=== PATIENT | male | born 1935 | race Two or more races ===

== ENCOUNTER 2024-05-04 16:16 | Emergency (ER) | payer OTHER ==
[~2024-05-04] VITALS: Ht 182.9 cm; Wt 95.4 kg
--- NOTE | 2024-05-04 16:31 | ECG ---
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
--- NOTE | 2024-05-04 17:12 | DVH ---
CHEST RADIOGRAPH Indication:aloc Technique: Single frontal view of the chest was obtained Comparison: None FINDINGS: Lines and Tubes: None Lungs: No focal consolidation. Left basilar linear densities. Surgical clips are noted over the lower neck region. Mild elevation of the right hemidiaphragm. Pleura: No effusion. No pneumothorax. Cardiomediastinal contours: Unremarkable Bones: No acute osseous abnormality. IMPRESSION: Left basilar atelectasis. Otherwise, no evidence of acute cardiopulmonary disease.
--- NOTE | 2024-05-04 17:22 | DVH ---
Procedure: CT HEAD WITHOUT CONTRAST Study Date and Requested Time: 05/04/2024 04:46 PM History: aloc Comparison: None Dose: CTDI: 63.38 mGy DLP: 1248.63 mGycm Technique: Multiplanar images obtained through the brain without intravenous contrast. Findings: There is mild to moderate diffuse brain atrophy. There is mild chronic small-vessel ischemic changes. Asymmetric left frontal lobe hypodensity with a asymmetric right parietal lobe hypodensity which may represent areas of infarct of unknown chronicity. 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 Artifact limits evaluation of the emery punctate hypodensity within the right thalamus. No hemorrhages, masses, mass effect, midline shift, or herniation. No intra-axial or extra-axial flui d collections. No evidence of hydrocephalus. The basal cisterns are patent. The pituitary gland, sella and parasellar regions are unremarkable. The cerebellar tonsils are in nor mal position. Bilateral lens replacement. Otherwise, orbits and globes are unremarkable. Minimal mucoperiosteal th ickening of the ethmoid air cells right sphenoid sinus. Otherwise, the paranasal sinuses and mastoid s are clear. There are no worrisome calvarial lesions. Impression: Areas of asymmetric hypodensity within the left frontal and right parietal lobes which may represent areas of infarct of unknown chronicity. MRI would be helpful for further evaluation. Punctate hypodensity within the right thalamus which represent lacunar infarct of unknown chronicity. 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
[2024-05-04 17:28] LABS: Basophils # (auto) 0 10 ^3/uL (0-0.2); Basophils % (auto) 0.4 % (0.0-2.0); Eosinophils # (auto) 0 10 ^3/uL (0-0.8); Eosinophils % (auto) 0.4 % (0.0-7.0); Hemoglobin 11.3 g/dL (13.5-17.5); Lymphocytes # (auto) 1.2 10 ^3/uL (0.4-5.4); Lymphocytes % (auto) 10.1 % (10.0-50.0); Mean Corpuscular Hemoglobin 31.6 pg (28.0-32.0); Mean Corpuscular Hgb Conc. 33.2 g/dL (32.0-36.0); Mean Corpuscular Volume 95.2 fL (80.0-100.0); Monocytes % (auto) 8.3 % (0.0-12.0); Neutrophils # (auto) 9.5 10 ^3/uL (1.6-8.6); Neutrophils % (auto) 80.8 % (37.0-80.0); Platelet Count (auto) 201 10^3/uL (140-450); Red Blood Cells 3.57 10^6/uL (4.5-5.90); Red Cell Distribution Width 13.9 % (11.8-14.3); White Blood Cell 11.7 10^3/uL (4.4-10.8)
[2024-05-04 17:33] LABS: Urine Bacteria FEW /hpf (None Seen); Urine Blood 2+ /uL (Negative); Urine Clarity Clear (Clear); Urine Color Light-Yellow (Yellow); Urine Protein, UAD 1+ (Negative); Urine Specific Gravity 1.014 (1.001-1.035); Urine Urobilinogen Normal (Negative); Urine WBC 14 /hpf (0 - 3); Urine pH 5.5 (5.0-9.0)
[2024-05-04 17:42] LABS: Alanine Aminotransferase 11 U/L (7-40); Albumin 3.5 g/dL (3.2-4.8); Alkaline Phosphatase 85 U/L (46-116); Anion Gap 8 (5-15); Aspartate Aminotransferase 15 U/L (13-40); BUN/Creatinine Ratio 14.4 (10.0-20.0); Bilirubin, Total 0.3 mg/dL (0.2-1.0); Blood Alcohol < 3.0 mg/dL (<10); Blood Urea Nitrogen 18 mg/dL (9-23); Carbon Dioxide 24 mmol/L (20-31); Chloride 107 mmol/L (98-107); Glucose 105 mg/dL (74-106); Sodium 139 mmol/L (136-145); Total Protein 7.2 g/dL (5.7-8.2)
--- NOTE | 2024-05-04 20:35 | ED.PDOC ---
History of Present Illness HPI Comments 89-year-old male brought in by EMS from home with altered mental status, onset today. Patient himself is currently oriented x1, denies pain, nausea or vomiting, however no additional history is obtainable from the patient. Patient's family later arrived and stated the patient has a history of recent nephrostomy and surgery/biopsy to relieve a bladder outlet obstruction, is currently on antibiotics, and is normally oriented x4. Patient's family states he has been taking [place] for pain, and they are concerned that this medication could be the cause of his change in mental status. Chief Complaint: ALOC Time Seen by MD: 16:35 Primary Care Provider: UNKNOWN Allergies: Coded Allergies: No Known Drug Allergy (Verified Allergy, Unknown, 05/04/24) Mode of Arrival: EMS Past Medical History Past Medical History (Other): Hypertension, bladder outlet obstruction Surgical History (Other): Left nephrostomy, ?Prostate biopsy Unable to Obtain due to: Altered Mental Status (Comprehensive systems review unobtainable due to the patient's altered mental status, but is pertinent for what is stated in the HPI.) Physical Exam General Appearance: No Apparent Distress HEENT: Normal ENT Inspection Neck: Full Range of Motion, Normal Inspection, Supple Respiratory: Lungs Clear, No Accessory Muscle Use, No Respiratory Distress, Normal Breath Sounds Cardiovascular: No Edema, No JVD, Regular Rate/Rhythm Breast Exam: Deferred Gastrointestinal: Non Tender, Soft Genitalia: Other (Left nephrostomy with cloudy urine in collection bag. Nephrostomy site appears clean, dry and intact. Calderon catheter in place with armand blood in the collection bag.) Pelvic: Deferred Rectal: Deferred Extremities: Normal inspection, Normal range of motion, Non-tender, No pedal edema Neurologic: Alert, Other (Moves all extremities, follows commands, sensation grossly intact. Oriented to name only.) Cerebellar Function: NOT DONE Reflexes: NOT DONE Skin: Dry, Normal Color, Warm Lymphatic: NOT DONE Was a procedure done? Was a procedure done?: No EKG EKG : Comments Sinus rhythm, rate 78, normal MA and QRS intervals, QTC prolonged at 5:03 a.m., left axis deviation, occasional PACs, nonspecific T changes Differential Dx Considerations may include: UTI, CVA, TIA, sepsis, pneumonia, electrolyte imbalance, arrhythmia, DC, side effect of medication, alcohol intoxication, drug intoxication, among others X-Ray, Labs, Meds, VS Vital Signs Date Time Temp Pulse Resp B/P (MAP) Pulse Ox O2 Delivery O2 Flow Rate FiO2 05/04/24 22:00 65 23 124/66 (85) 93 05/04/24 21:37 98.7 05/04/24 21:20 98.7 98.7 05/04/24 20:37 101.3 05/04/24 20:30 101.3 101.3 05/04/24 20:00 100.5 79 28 122/77 (92) 93 100.5 05/04/24 20:00 79 05/04/24 19:35 Room Air* 0 21 05/04/24 19:00 74 20 118/71 (87) 95 05/04/24 17:09 75 05/04/24 17:05 Room Air* 0 21 05/04/24 17:05 98.0 74 23 150/72 (98) 94 98.0 05/04/24 16:24 78 05/04/24 16:19 98.4 81 15 150/75 (100) 94 Lab Test 05/04/24 19:54 05/04/24 17:13 05/04/24 17:00 Range/Units Troponin I High Sensitivity 12 10 </=54 ng/L White Blood Count 11.7 H 4.4-10.8 10^3/uL Red Blood Count 3.57 L 4.5-5.90 10^6/uL Hemoglobin 11.3 L 13.5-17.5 g/dL Hematocrit 34.0 L 41.0-53.0 % Mean Corpuscular Volume 95.2 80.0-100.0 fL Mean Corpuscular Hemoglobin 31.6 28.0-32.0 pg Mean Corpuscular Hemoglobin Concent 33.2 32.0-36.0 g/dL Red Cell Distribution Width 13.9 11.8-14.3 % Platelet Count 201 140-450 10^3/uL Mean Platelet Volume 7.9 6.9-10.8 fL Neutrophils (%) (Auto) 80.8 H 37.0-80.0 % Lymphocytes (%) (Auto) 10.1 10.0-50.0 % Monocytes (%) (Auto) 8.3 0.0-12.0 % Eosinophils (%) (Auto) 0.4 0.0-7.0 % Basophils (%) (Auto) 0.4 0.0-2.0 % Neutrophils # (Auto) 9.5 H 1.6-8.6 10 ^3/uL Lymphocytes # (Auto) 1.2 0.4-5.4 10 ^3/uL Monocytes # (Auto) 1.0 0-1.3 10 ^3/uL Eosinophils # (Auto) 0 0-0.8 10 ^3/uL Basophils # (Auto) 0 0-0.2 10 ^3/uL Nucleated Red Blood Cells 0.0 % Sodium Level 139 136-145 mmol/L Potassium Level 4.0 3.5-5.1 mmol/L Chloride Level 107 98-107 mmol/L Carbon Dioxide Level 24 20-31 mmol/L Anion Gap 8 5-15 Blood Urea Nitrogen 18 9-23 mg/dL Creatinine 1.25 0.700-1.30 mg/dL Glomerular Filtration Rate Calc 55 >90 mL/min BUN/Creatinine Ratio 14.4 10.0-20.0 Serum Glucose 105 74-106 mg/dL Lactic Acid Level 1.4 0.4-2.0 mmol/L Calcium Level 9.0 8.7-10.4 mg/dL Total Bilirubin 0.3 0.2-1.0 mg/dL Aspartate Amino Transferase (AST) 15 13-40 U/L Alanine Aminotransferase (ALT) 11 7-40 U/L Alkaline Phosphatase 85 46-116 U/L Total Protein 7.2 5.7-8.2 g/dL Albumin 3.5 3.2-4.8 g/dL Plasma/Serum Blood Alcohol < 3.0 <10 mg/dL Urine Color Light-yellow Yellow Urine Clarity Clear Clear Urine pH 5.5 5.0-9.0 Urine Specific [place] 1.014 1.001-1.035 Urine Protein 1+ H Negative Urine Ketones Negative Negative Urine Blood 2+ H Negative /uL Urine Nitrite 2+ H Negative Urine Bilirubin Negative Negative Urine Urobilinogen Normal Negative mg/dL Urine Leukocyte Esterase 2+ Negative /uL Urine RBC 13 0 - 3 /hpf Urine WBC 14 0 - 3 /hpf Urine Squamous Epithelial Cells Few <5 /hpf Urine Bacteria Few H None Seen /hpf Urine Glucose Normal Normal mg/dL Current Medications Medications (Trade) Dose Ordered Sig/Andrade Route Start Time Stop Time Status Last Admin Acetaminophen (Tylenol Tablet) 1,000 mg ONCE ONCE PO 05/04/24 20:45 05/04/24 20:46 DC 05/04/24 20:37 Ceftriaxone Sodium 50 ml @ 100 mls/hr ONCE ONCE IV 05/04/24 20:45 05/04/24 21:38 DC 05/04/24 21:45 Levofloxacin/ Dextrose 100 ml @ 100 mls/hr ONCE ONCE IV 05/04/24 21:15 05/04/24 22:14 DC 05/04/24 21:45 Sodium Chloride 1,000 ml @ 1,000 mls/hr Q1H ONCE IV 05/04/24 21:15 05/04/24 22:14 DC 05/04/24 21:44 PROCEDURE(s): HWOCT - HEAD WITHOUT CONTRAST REASON: aloc ORDER NUMBER(s): [id number], ACCESSION NUMBER(s): [id number] Procedure: CT HEAD WITHOUT CONTRAST Study Date and Requested Time: 05/04/2024 04:46 PM History: aloc Comparison: None Dose: CTDI: 63.38 mGy DLP: 1248.63 mGycm Technique: Multiplanar images obtained through the brain without intravenous contrast. Findings: There is mild to moderate diffuse brain atrophy. There is mild chronic small- vessel ischemic changes. Asymmetric left frontal lobe hypodensity with a asymmetric right parietal lobe hypodensity which may represent areas of infarct of unknown chronicity. 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 Artifact limits evaluation of the emery punctate hypodensity within the right thalamus. No hemorrhages, masses, mass effect, midline shift, or herniation. No intra- axial or extra-axial fluid collections. No evidence of hydrocephalus. The basal cisterns are patent. The pituitary gland, sella and parasellar regions are unremarkable. The cerebellar tonsils are in normal position. Bilateral lens replacement. Otherwise, orbits and globes are unremarkable. Minimal mucoperiosteal thickening of the ethmoid air cells right sphenoid sinus. Otherwise, the paranasal sinuses and mastoids are clear. There are no worrisome calvarial lesions. Impression: Areas of asymmetric hypodensity within the left frontal and right parietal lobes which may represent areas of infarct of unknown chronicity. MRI would be helpful for further evaluation. Punctate hypodensity within the right thalamus which represent lacunar infarct of unknown chronicity. 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 EDURE(s): CXRP - CHEST PORTABLE REASON: aloc ORDER NUMBER(s): [id number], ACCESSION NUMBER(s): [id number] CHEST RADIOGRAPH Indication:aloc Technique: Single frontal view of the chest was obtained Comparison: None FINDINGS: Lines and Tubes: None Lungs: No focal consolidation. Left basilar linear densities. Surgical clips are noted over the lower neck region. Mild elevation of the right hemidiaphragm. Pleura: No effusion. No pneumothorax. Cardiomediastinal contours: Unremarkable Bones: No acute osseous abnormality. IMPRESSION: Left basilar atelectasis. Otherwise, no evidence of acute cardiopulmonary disease. X-Ray, Labs, Meds, VS Comment 89-year-old male with a history of hypertension and recent left nephrostomy and prostate procedure presenting with altered mental status. Vitals remarkable for fever up to 101.3 Exam remarkable for armand blood in the Calderon catheter. No abdominal tenderness. Oriented x1 to name only. EKG sinus rhythm, nonspecific changes Chest x-ray left basilar atelectasis, otherwise unremarkable CT head Impression: Areas of asymmetric hypodensity within the left frontal and right parietal lobes which may represent areas of infarct of unknown chronicity. MRI would be helpful for further evaluation. Punctate hypodensity within the right thalamus which represent lacunar infarct of unknown chronicity. 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 CBC remarkable for WBC 11.7, hemoglobin 11.3, hematocrit 34 CMP, lactate, 2 serial troponins and serum alcohol level unremarkable for any abnormality of acute significance UA abnormal consistent with UTI Patient received Rocephin 1 g IVPB and Tylenol 1 g p.o. in the ED. After speaking to [facility], I was informed patient is on Keflex, so patient subsequently received Levaquin 500 mg and 1 L 0.9 normal saline IV. Plan is to transfer the patient to [facility] for further treatment. Case discussed with Dr. Morgan at [facility], who will arrange for the patient to be transferred to [facility]. Authorization [id number] Time of 1ST Reevaluation: 20:49 Reevaluation 1ST: Unchanged Patient Education/Counseling: Diagnosis, Treatment Family Education/Counseling: Diagnosis, Treatment Departure 1 Departure Time of Disposition: 20:48 Impression: Primary Impression: Altered mental status Qualified Codes: R41.0 - Disorientation, unspecified Additional Impression: UTI (urinary tract infection) Qualified Codes: N39.0 - Urinary tract infection, site not specified; R31.9 - Hematuria, unspecified Disposition: 02 SHORT TERM HOSPITAL Admit to: [facility] Condition: Guarded Critical Care Note Critical Care Time?: No Stability Stability form required: No Heart Score Heart Score: Heart Score Response (Comments) Value History N/A 0 EKG N/A 0 Age N/A 0 Risk Factors N/A 0 Troponin N/A 0 Total 0 CLAUDIA TOLEDO MD May 04, 2024 20:35
[2024-05-04] MEDS: ACETAMINOPHEN 500 MG TAB PO ONE ×2 (20:37→20:53)
[2024-05-04] MEDS: SODIUM CHLORIDE 0.9% 1,000 ML IV ONE (21:44)
[2024-05-04] MEDS: cefTRIAXone 1GM/50ML D5W 50 ML IV ONE (21:45)
[2024-05-04] MEDS: levoFLOXacin 500MG 100 ML IV ONE (21:45)
[2024-05-04 23:27] VITALS: BP 125/63; PULSE 62; RESP 22; TEMP 98.7; O2SAT 94
== END 2024-05-05 00:04 | disposition short-term general hospital (02) ==
LOC: EDBD 16:16 → ER 16:16
DX: R41.82 Altered mental status, unspecified (principal); N39.0 Urinary tract infection, site not specified; I10 Essential (primary) hypertension
CPT/HCPCS: 36415; 70450; 71045; 80053; 80320; 81001; 83605; 84484; 85025; 87086; 93005; 96365; 96368; 99285; J0696; J1956; J7030

== ENCOUNTER 2024-05-11 13:06 | Emergency (ER) | payer OTHER ==
[~2024-05-11] VITALS: Ht 175.3 cm; Wt 73.0 kg
[2024-05-11 13:18] VITALS: BP 129/73; PULSE 81; RESP 16; O2SAT 93
== END 2024-05-11 13:50 | disposition home or self-care (01) ==
LOC: ER 13:06
DX: T83.032A Leakage of nephrostomy catheter, initial encounter (principal); Y92.89 Other specified places as the place of occurrence of the external cause